=== PATIENT | male | born 1980 | race Caucasian/White ===

== ENCOUNTER 2017-06-28 14:23 | Emergency (ER) | payer MEDICAID, OTHER ==
--- NOTE | 2017-06-28 15:01 | EDM.PDOC ---
ED HPI GENERAL MEDICAL PROBLEM - General Chief Complaint: Burn Stated Complaint: BURN TO FACE AND ARM Time Seen by Provider: 06/28/17 14:29 Source of Information: Reports: Patient, Family History Limitations: Reports: No Limitations - History of Present Illness INITIAL COMMENTS - FREE TEXT/NARRATIVE: 37 y.o.w. male came to ed 8 hours after he splashed hot cooking fat by accident , at work, onto his pace and neck, his eyes and mouth were spared. No other acute medical issues. Pt was working 8 hours still after yje incident. BP 128/ 88 RR 18 Pulse ox 100% on RA. 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 R side of face Pain Score (Numeric/FACES): 8 - Related Data Allergies Allergy/AdvReac Type Severity Reaction Status Date / Time No Known Allergies Allergy Verified 06/28/17 14:34 Home Meds: Home Meds NK [No Known Home Meds] 06/28/17 [History] Past Medical History Psychiatric History: Reports: Addiction Other Psychiatric History: hx ETOH abuse, in tx x 1 in past - Past Surgical History HEENT Surgical History: Reports: Oral Surgery GI Surgical History: Reports: Appendectomy Social & Family History - Family History Family Medical History: Noncontributory - Tobacco Use Smoking Status *Q: Current Every Day Smoker Years of Tobacco use: 20 Packs/Tins Daily: 0.5 - Caffeine Use Caffeine Use: Reports: Energy Drinks, Soda, Tea - Recreational Drug Use Recreational Drug Use: No ED ROS GENERAL - Review of Systems Review Of Systems: See Below Constitutional: Reports: No Symptoms HEENT: Reports: No Symptoms Respiratory: Reports: No Symptoms Cardiovascular: Reports: No Symptoms Endocrine: Reports: No Symptoms GI/Abdominal: Reports: No Symptoms : Reports: No Symptoms Musculoskeletal: Reports: No Symptoms Skin: Reports: Rash (1st degree burn at nose, right cheek and neck) Neurological: Reports: No Symptoms Psychiatric: Reports: No Symptoms Hematologic/Lymphatic: Reports: No Symptoms Immunologic: Reports: No Symptoms ED EXAM, BURN/SMOKE INHALATION - Physical Exam Exam: See Below Exam Limited By: No Limitations General Appearance: Alert, WD/WN, No Apparent Distress Eye Exam: Bilateral Eye: Normal Inspection Ears (Abbreviated): Normal External Exam Nose: Left Anterior: No Blood, Right Anterior: No Blood Mouth/Throat: No Symptoms Reported Head: Other (1st degree burn at nose) Neck: Other (1st degree burn at right neck) Respiratory: No Respiratory Distress, Lungs Clear, Normal Breath Sounds, No Accessory Muscle Use, Chest Non-Tender Cardiovascular: Normal Peripheral Pulses, Regular Rate, Rhythm, No Edema, No Gallop, No JVD, No Murmur, No Rub GI/Abdominal: Normal Bowel Sounds, Soft, Non-Tender, No Organomegaly, No Distention, No Abnormal Bruit (Male) Exam: Deferred Rectal Exam: Deferred Back Exam: Normal Inspection, Full Range of Motion Extremities: Normal Inspection, Normal Range of Motion Neurological: Alert, Oriented, CN II-XII Intact, Normal Cognition, Normal Gait, No Motor/Sensory Deficits Psychiatric: Normal Affect, Normal Mood Skin Exam: Warm, Dry, Intact, Normal Color, No Rash Lymphatic: No Adenopathy Course - Vital Signs Text/Narrative:: 37 y.o.w. male came to ed 8 hours after he splashed hot cooking fat by accident , at work, onto his pace and neck, his eyes and mouth were spared. No other acute medical issues. Pt was working 8 hours still after yje incident. BP 128/ 88 RR 18 Pulse ox 100% on RA. Temp 36.8 Pulse 66 PE: 37 years old w m came to the ed 8 hours after he splashed by accident hot cooking fat into his face, eyes and mouth spared, 1/2% of TBSA, no open wound Imaging/labs: Not indicated Impression: 1/4-1/2% of TBSA 1st degree burn of face and right neck Tx: Bacitracin ointment, Motrin were recommended, TD UTD Plan: D/C with instructions Last Recorded V/S: Last Vital Signs Temp 36.3 C 06/28/17 14:29 Pulse 69 06/28/17 14:29 Resp 18 06/28/17 15:19 BP 118/74 06/28/17 15:19 Pulse Ox 100 06/28/17 15:19 Departure - Departure Time of Disposition: 14:58 Disposition: Home, Self-Care 01 Condition: Good Clinical Impression: Superficial burn of face, head, and neck - Discharge Information Instructions: Burn Care, Adult, [id number] Referrals: PCP,None [Primary Care Provider] - Forms: ED Department Discharge Additional Instructions: Please take Motrin for pain, please apply Triple antibiotic ointment to the affected area twice daily for 5 days, please follow up with regular MD at clinic if not improving , please come back if your symptoms get worse acutely
== END 2017-06-28 15:21 | disposition home or self-care (01) ==
LOC: FB.ED 14:23
DX: T20.14XA Burn of first degree of nose (septum), initial encounter (principal); T20.17XA Burn of first degree of neck, initial encounter; T28.0XXA Burn of mouth and pharynx, initial encounter; F17.210 Nicotine dependence, cigarettes, uncomplicated; X10.2XXA Contact with fats and cooking oils, initial encounter; Y93.G3 Activity, cooking and baking
CPT/HCPCS: 99283